=== PATIENT | male | born 2005 | race Caucasian/White ===

== ENCOUNTER 2023-02-04 15:34 | Outpatient (RCR) | payer OTHER, SELFPAY ==
--- NOTE | 2023-02-14 11:04 | PT.OPEX ---
PT [facility] Eval PT [facility] Outpatient Eval Start: 02/04/23 15:31 Freq: Status: Active Protocol: Document 02/04/23 15:31 HN (Rec: 02/05/23 11:05 HN [id number]) E-signed By Angeles Schwarz DPT Physical Therapy Outpatient Evaluation Insurance Information Insurance Name Other; See Comments Insurance Information/Comments Greg Florez Medical Diagnosis R29. 898 for Other symptoms and signs involving the musculoskeletal system Treating Diagnosis M25. 651 for Stiffness of right hip M25. 671 for Stiffness of right ankle Referring MD Biju Randall MD Subjective Subjective Patient is a 17 year old male with concerns related to right hip. Patient reports he has noticed R LE turns out with walking. Patient reports some squat compensations and some difficulty with pitching. Patient also reports R LE turns out with walking. 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 [employer] Preferred Name Marcelo Objective Other/Pertinent Objective Hip range of motion (degrees): Flexion: 115 R PROM/ 125 L PROM External rotation: 50 R PROM/ 43 L PROM Internal rotation: 18 R PROM/ 50 L PROM Manual muscle testing: Hip flexion: 5/5 L , 5/5 R Hip abduction: 5/5 L , 5/5 R Hip adduction: 4+/5 L , 4+/5 R Hip extension: 5/5 L , 5/5 R Hip internal rotation: 5/5 L , 5/5 R Hip external rotation: 5/5 L , 5/5 R Knee extension: 5/5 L , 5/5 R Knee flexion: 5/5 L , 5/5 R Ankle DF: 5/5 bilaterally Ankle PF: 5/5 in bilaterally Joint mobility: mild hypomobility with R ankle PA mobilizations Knee to wall: significant decrease in R WBing DF versus left Squat: weight shift over to L LE, externally rotated and abducted R LE Squat with 2 heel raise, decreased compensation noted Assessment Assessment/Impression Patient is a 17 year old male with concerns related to right hip. Patient demonstrates limitations in R hip internal rotation and flexion R ankle dorsiflexion. These impairments impact the patient 's squat, pitching performance and may impact the patient's gait. Patient demonstrates no deficits in strength with manual muscle testing. Patient instructed in exercises to improve R hip internal range of motion and strength and R ankle DF with handout provided . Patient educated R hip range of motion limitations could be due to femoral retroversion . Patient educated on frequency of home exercise program and to modify if exercises produce symptoms. Patient returning home in two weeks and reports he will seek additional intervention in [place]. Primary Functional Limitations squat, pitching performance and may impact the patient's gait Plan of Care Rehabilitation Potential Good Physical Therapy Goals Short term goals (1 visit) 1. Patient will demonstrate independence with home exercise program to self manage condition. MET Treatment Plan/Direct Interventions Therapeutic Exercises Frequency/Duration 1 visit evaluation and treatment Patient Will Be Discharged From Therapy Independent w/HEP Evaluation Billing Untimed Code Treatment Minutes 20 Complexity Low Certification Information Physician Comment/Change : Physician NPI Number #
== END 2023-03-24 16:00 | disposition home or self-care (01) ==
PROVIDERS: PCP Family Medicine; Visit Provider Internal Medicine
DX: R29.898 Other symptoms and signs involving the musculoskeletal system (principal); M25.651 Stiffness of right hip, not elsewhere classified; M25.671 Stiffness of right ankle, not elsewhere classified; Z51.89 Encounter for other specified aftercare
CPT/HCPCS: 97110; 97161